=== PATIENT | female | born 1975 | race Caucasian/White ===

== ENCOUNTER 2017-08-18 14:30 | Outpatient (RCR) | payer OTHER, SELFPAY ==
--- NOTE | 2017-07-29 09:16 | HP.PTEVAL_ITS ---
Patient's Visit Information BRIANNA LEWIS is a 42 year old F referred to Physical Therapy by Arthur RAMÍREZ with a diagnosis of Cervical DDD. Date of Evaluation: 07/29/17 Physical Therapist: Arcenio Valerio DPT, OC - Visit Plan Frequency: 2x /Week Duration: 4-6 Weeks Plan: 2x/week for 3 -6 weeks for. progress of sea based forces on c/s ret to extension and mobs as needed. cervical and postural strength to HEP. TENS and STM to UT and subocc as needed with MH. - Subjective Subjective: Tripp for two months insidious onset. Worsening and more consistent. 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 Start in base of skull and move to B eyes. Waking her up at night. Constant. Avoids cleaning due to TRIPP. Basic ADLs done but made more difficult. Moist heat helps. Masssage helped for a day. 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 Golfer. X box,. Stress and anxious. carries in in shoulders. Neck feels stiff but not painful. - Pain TRIPP Pain Intensity (Out of 10): 7 Pain Intensity Range: 0, 9 Comment: massage made it 0 for a while. - Objective Start LB tightness and mild TRIPP. repeated protrusion W in scapula with tension, TRIPP worse. repeated retraction: OK abolish TRIPP,. Has forward head and loss of cervical lordosis, scapula slightly elevated at baseline. UE and scap ROM is good. c/s AROM ext 50, rot 70 and SB gives tightness R UT. Pain only with ext central neck more tightness. reflexes 2/3 bi and tri. strength UE 4/5 without myotomal problems or pain. Sensation In UE WNL to gross light touch. Palpable balls in B UT but no real tenderness in cervical or scapular mmuscles. - c/s compression, - Goals Goal 1:: Full c/s AROM without pain Goal Time Frame: 4-6 Weeks Goal 2:: Approp posture without VC. Goal Time Frame: 4-6 Weeks Goal 3:: Pain 1/10 at worst and 90% better overall. Goal Time Frame: 4-6 Weeks Goal 4:: Sleep without interruption from TRIPP Goal Time Frame: 4-6 Weeks - Rehabilitation Potential Physical Therapy Diagnosis: Cervical pain/TRIPP likely derangement in nature. Rehabilitation Potential: Fair - Anticipated Interventions Patient/Client Instruction: Educate patient on: Condition, Plan of Care For the Purpose of:: To decrease pain, To increase ROM Therapeutic Exercise to Include: Strength training, Passive ROM, Active ROM, Sea Exercises, Scapular Strength/Stabilization For the Purpose of:: To decrease pain, To increase ROM, To improve ability of physical actions for home/community/work/leisure Manual Therapy Techniques to Include: Mobilization For the Purpose of:: To increase ROM TENS: Yes Thermo therapy (hot pack): Yes For the Purpose of:: To decrease pain Thank you for the opportunity to evaluate your patient. For Medicare and Medicare HMO plans, please review the plan of care and approve it. It will need to be FAXED BACK to us at [phone] for Medicare purposes. Please let me know if there are questions or concerns regarding this plan of care. Physician Signature: Date:
--- NOTE | 2017-08-18 15:14 | HP.PTDCSUM ---
HP - PT D/C Summary It has been my pleasure to treat BRIANNA LEWIS under orders from DR.CRANNE Corine for the diagnosis of Cervical DDD for a total of 8 visit(s). Discharge Date: 08/18/17 Please see the following information for a summary of their discharge status. - Subjective Subjective: No TRIPP anymore. Exercises really helped . HEP: pulling on banned. Sleep is good. Has exercises on paper. - Pain TRIPP Pain Intensity (Out of 10): 0 - Overall Improvement % Improvement: 90 - Objective Objective/Function: Full active C/S arom without pain today. Full UE AROM and strength is 4/5 without pain. - Goals Goal 1:: Full c/s AROM without pain Goal Progress: Goal Met Goal 2:: Approp posture without VC. Goal Progress: Goal Met Goal 3:: Pain 1/10 at worst and 90% better overall. Goal Progress: Goal Met Goal 4:: Sleep without interruption from TRIPP Goal Progress: Goal Met - Plan Plan: D/C to HEP - D/C Information Discharge Comments: Pt did excellent with PT and will continue via HEP. Will contact doctor if pain returns If there are questions or concerns regarding this patient's physical therapy, please feel free to call me at [phone]. Thank you for the referral of this patient. Sincerely, Arcenio Valerio, DPT, OC
== END 2017-08-18 19:00 | disposition home or self-care (01) ==
LOC: PT 14:30
PROVIDERS: Family Provider Family Medicine; PCP Family Medicine; Visit Provider Family Medicine
DX: M50.30 Other cervical disc degeneration, unspecified cervical region (principal)
CPT/HCPCS: 97110; 97140; 97161; 97530

== ENCOUNTER → 2017-11-30 10:30 | Outpatient (CLI) | payer OTHER, SELFPAY ==
[2017-12-02 12:11] LABS: HPV Reflexed? NOT INDICATED
== END ==
PROVIDERS: Visit Provider Obstetrics & Gynecology
DX: Z12.4 Encounter for screening for malignant neoplasm of cervix (principal)
CPT/HCPCS: 88175; G0145

== ENCOUNTER → 2017-12-28 10:15 | Outpatient (CLI) | payer OTHER, SELFPAY ==
--- NOTE | 2017-12-28 10:17 | BI_ITS ---
MAMMOGRAPHY - BILATERAL SCREENING REASON FOR EXAM: Female, 42 years old. Routine annual screening examination. PERTINENT HISTORY: Aunt with breast cancer. TECHNIQUE: Digital bilateral breast tessa (3D mammographic acquisition) in the CC and MLO projections. 2-D mediolateral oblique (MLO) and craniocaudad (CC) views of both breasts were obtained. CAD: Full Field Digital Mammography with Computer Added Detection was performed. COMPARISON: Comparison is made with prior study dated October 29, 2016 and January 14, 2014. FINDINGS: Breast Composition: The breasts are heterogeneously dense, which may obscure small masses. There are no dominant masses or suspicious calcifications. Stable benign-appearing bilateral axillary lymph nodes. No other significant abnormalities are identified. There has been no significant change since the prior study. BI/SCREENING MAMM (CAD), BILAT IMPRESSION: Stable bilateral screening mammogram. Yearly follow-up mammogram recommended. (A) ASSESSMENT CATEGORY: BIRADS Category 2: Benign. A letter regarding these results will be sent to the patient by the facility within 30 days. Approximately 10% of breast cancers are not detected by mammography. A normal mammogram should not delay biopsy of a clinically suspicious abnormality. [id number] Electronically Signed: Marcus Jackson MD at 11:21 EDT Tel [phone], Service support ,
== END ==
PROVIDERS: Family Provider Family Medicine; PCP Family Medicine; Visit Provider Obstetrics & Gynecology
DX: Z12.31 Encounter for screening mammogram for malignant neoplasm of breast (principal)
CPT/HCPCS: 77063; 77067

== ENCOUNTER 2018-07-12 08:15 | Outpatient (RCR) | payer OTHER, SELFPAY ==
--- NOTE | 2017-08-03 13:18 | MASS.EVAL_ITS ---
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 She was referred to the [facility] facility for a massotherapy evaluation by Dr. Arthur William with the diagnosis of headaches. Blanche presents today with the symptoms of tension and pain in her neck, upper back, lower back, and hips. She reports having a history of chronic neck pain and muscle tension in her neck, shoulders and low back. She reports having five or more headaches per week but reports minimal limitations during her daily activities currently. OBJECTIVE: Upon observation Blanche has poor posture with her head forward and shoulders forward from the neutral position in sitting and standing. After examination and palpation I found Blanche to have very high muscle tension in her scalenes, trapezius, rhomboids, and sub occipitals with restrictions in cervical ROM. Her thoracic paraspinals were tender with muscle knots. Her hips and lumbar muscles were also very tight with tender points. The first treatment consisted of a one hour massage to her full body with myofascial release and compression techniques. ASSESSMENT: I feel that Blanche is a good candidate for massotherapy at this time. She had a favorable response to the first treatment with reduction in her muscle aches, pain and tension. She also had improvement in her cervical and lumbar range of motion with improved flexibility in her neck and back. PLAN: The plan of care was reviewed with the patient. The patient is to be seen on as needed basis for a total of ten sessions with the recommendation of once every four weeks for a one hour treatment.
--- NOTE | 2018-07-12 12:04 | MASS.DISCH ---
Massage Therapy Discharge Summary: Discharge Date: 07/12/2018 Blanche was seen for a massotherapy evaluation on 07/27/2017 with the diagnosis of neck pain. She was treated with ten sessions of massage therapy consisting of deep pressure soft tissue techniques, myofascial release and trigger point compression to her cervical, thoracic, lower back, upper extremities and hips. Blanche responded well to the therapy by reporting decreased tension and pain throughout her head, neck, shoulders, lower back and hips. Her goals for therapy were met throughout the treatment sessions. At this time this patient is being discharged from our care at [facility] facility.
== END 2018-07-12 19:00 | disposition home or self-care (01) ==
LOC: MASS 08:15
PROVIDERS: Family Provider Family Medicine; PCP Family Medicine; Visit Provider Family Medicine
DX: M50.30 Other cervical disc degeneration, unspecified cervical region (principal)
CPT/HCPCS: 97124

== ENCOUNTER → 2019-02-16 | Outpatient (CLI) | payer OTHER, SELFPAY ==
[2018-12-01 07:06] VITALS: BMI 29.2
--- NOTE | 2019-02-16 14:59 | BI_ITS ---
MAMMOGRAPHY - BILATERAL SCREENING REASON FOR EXAM: Female, 43 years old. Routine annual screening examination. PERTINENT HISTORY: Aunt with breast cancer. TECHNIQUE: Digital bilateral breast dona (3D mammographic acquisition) in the CC and MLO projections. 2-D mediolateral oblique (MLO) and craniocaudad (CC) views of both breasts were obtained. CAD: Full Field Digital Mammography with Computer Added Detection was performed. COMPARISON: Comparison is made with prior examination dated December 28, 2017 and October 29, 2016. FINDINGS: Breast Composition: The breasts are heterogeneously dense, which may obscure small masses. There are no dominant masses or suspicious calcifications. Stable small benign-appearing bilateral axillary lymph nodes. No other significant abnormalities are identified. There has been no significant change since the prior study. BI/SCREEN MAMM (CAD) W/DONA BILAT IMPRESSION: Stable bilateral screening mammogram. Yearly follow-up mammogram recommended. (A) ASSESSMENT CATEGORY: BIRADS Category 2: Benign. A letter regarding these results will be sent to the patient by the facility within 30 days. Approximately 10% of breast cancers are not detected by mammography. A normal mammogram should not delay biopsy of a clinically suspicious abnormality. [id number] Electronically Signed: Marcus Jackson, at 10:00 EDT , Service support ,
== END | disposition home or self-care (01) ==
LOC: OPBI 14:58
PROVIDERS: Family Provider Family Medicine; PCP Family Medicine; Referring Provider Obstetrics & Gynecology; Visit Provider Obstetrics & Gynecology
DX: Z12.31 Encounter for screening mammogram for malignant neoplasm of breast (principal)
CPT/HCPCS: 77063; 77067

== ENCOUNTER 2019-05-30 08:15 | Outpatient (RCR) | payer OTHER, SELFPAY ==
[2018-07-30 11:36] VITALS: BMI 29.2
[2018-12-01 07:06] VITALS: BMI 29.2
--- NOTE | 2019-01-26 11:50 | MASS.EVAL ---
Massage Therapy Evaluation: Date Of Initial Evaluation: 01/10/2019 Referring Physician: Dr. 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 She was seen for a massotherapy evaluation with a diagnosis of neck and back pn. She presents today with pain in her neck and back. She further explains that at times she does get numbness and tingling into her arms and hands. On a pain scale of 1-10 she states her pain in a 5 today. She describes it more as stiffness than pain. Her medications include Lexapro and Hydroxacine. She states that her health is very good with no limits in daily activities. Her goals of treatment are to reduce headaches, and get her muscles to relax. OBJECTIVE: Upon examination and palpation I found she had point tenderness throughout her suboccipitals. The muscles in her head, neck, and shoulders were very tight. Her scalp was rigid. Her cervicals were tight, scalenes were tight right side greater than left. Her upper traps and low traps were tight with knots throughout. Her paraspinals are also rigid and ropey. Blanche's first treatment consisted of MFR, muscle stripping, PNMT to her cervicals as well as heat pack to loosen muscles. ASSESSMENT: Using various techniques I was able to achieve moderate releases overall. The patient tolerated deep pressure well and relaxed easily PLAN: I plan to see this patient on an as-needed basis for a total of 10 visits in the year 2019. Danielle Escalona LMT
--- NOTE | 2019-07-04 10:51 | MASS.DISCH ---
Massage Therapy Discharge Summary: Initial Evaluation Date: 01/10/2019 Diagnosis: Neck and back pain No. of Visits: 7 10 Date of last visit: 05/30/2019 This patient is being discharged from our care at the [facility]. Thank you, Clarisa Del Valle LMT
== END 2019-05-30 19:00 | disposition home or self-care (01) ==
LOC: MASS 08:15
PROVIDERS: Family Provider Family Medicine; PCP Family Medicine; Visit Provider Family Medicine
DX: M54.2 Cervicalgia (principal); M54.9 Dorsalgia, unspecified
CPT/HCPCS: 97124

== ENCOUNTER → 2020-03-19 16:18 | Outpatient (CLI) | payer OTHER, SELFPAY ==
[2020-03-19 09:45] VITALS: BMI 29.2
[2020-03-24 12:25] LABS: HPV APTIMA, High Risk Negative (Negative)
== END ==
PROVIDERS: PCP Family Medicine; Referring Provider Nurse Practitioner Women's Health; Visit Provider Nurse Practitioner Women's Health
DX: Z12.4 Encounter for screening for malignant neoplasm of cervix (principal)
CPT/HCPCS: 87624; 88175; G0145

== ENCOUNTER 2020-04-30 08:15 | Outpatient (RCR) | payer OTHER, SELFPAY ==
[2018-12-01 07:06] VITALS: BMI 29.2
--- NOTE | 2020-02-18 16:58 | MASS.EVAL ---
Massage Therapy Evaluation: INITIAL EVALUATION: DATE:02/11/20 PT NAME: BRIANNA LUNA : 1975 V#: [id number] REF PHYS: SUBJECTIVE: BRIANNA IS A 44 YEAR OLD FEMALE WHOSE CURRENT OCCUPATION IS A [employer] AND WAS REFERRED TO [facility] FOR A MASSOTHERAPY EVALUATION BY DR. FALLON WITH A DIAGNOSIS OF NECK AND SHOULDER PAIN. SHE PRESENTS TODAY WITH SYMPTOMS OF HEADACHE, TENSION IN NECK AND SHOULDERS, AND OCCASIONALLY WAKING UP WITH NUMBNESS IN HER ARMS AND FINGERS. SHE RATES HER OVERALL HEALTH IN GOOD CONDITION WITH NO LIMITATIONS IN HER DAILY ACITVITY. THE PATIENT IS CURRENTLY TAKING LEXAPRO, LORAZAPAM, PRILOSEC, AND ADVIL. OBJECTIVE: THE FIRST TREATMENT CONSISTED OF AN UPPER BODY MASSAGE. I FOCUSED ON SUBOCCIPITALS, PARASPINALS, LEVATOR, UPPER TRAPS, SCALENES, PECTORALS, AND RHOMBOIDS. DEEP TISSUE, NECK STRETCHES, AND TRIGGER POINT THERAPY WERE PERFOMED. ASSESSMENT: THE PATIENTS MUSCLE TENSION WAS VERY HIGH, WITH NO NATURAL MOVEMENT. THE RIGHT AND LEFT SIDES SEEMED BOTH EQUAL WITH TENSION AND HARDNESS. I FELT THE PATIENTS STRESS LEVEL DECREASED DURING THE MASSAGE AND SHE LEFT WITH NO HEADACHE. I FEEL THAT BRIANNA IS A GREAT CANDIDATE FOR MASSOTHERAPY AT THIS TIME. PLAN: THE AN OF CARE WAS REVIEWED WITH THE PATIENT. THE PATIENT IS TO BE SEEN ON A REGULAR BASIS FOR 10 SESSIONS FOR ONE HOUR OF MASSOTHERAPY.
--- NOTE | 2020-07-08 19:12 | MASS.DISCH ---
Massage Therapy Discharge Summary: Discharge Date: 07/08/2020 Blanche was seen for a massotherapy evaluation on 02/11/2020 with the diagnosis of neck and shoulder pain. She was treated with three sessions of massage therapy consisting of deep pressure soft tissue techniques, myofascial release and trigger point compression to her cervical, thoracic, lower back, lower extremities and hips. Blanche responded well to the therapy by reporting decreased tension and pain throughout her neck, shoulders, lower back and hips. Her goals for therapy were met throughout the treatment sessions. At this time this patient is being discharged from our care at [facility] facility.
== END 2020-04-30 19:00 | disposition home or self-care (01) ==
LOC: MASS 08:15
PROVIDERS: Family Provider Family Medicine; PCP Family Medicine; Referring Provider Family Medicine; Visit Provider Family Medicine
DX: M54.2 Cervicalgia (principal); M25.511 Pain in right shoulder; M25.512 Pain in left shoulder
CPT/HCPCS: 97124

== ENCOUNTER → 2020-05-27 13:56 | Outpatient (CLI) | payer OTHER, SELFPAY ==
[2020-03-19 09:45] VITALS: BMI 29.2
--- NOTE | 2020-05-27 14:02 | BI_ITS ---
MAMMOGRAPHY - BILATERAL SCREENING REASON FOR EXAM: Female, 44 years old. Routine annual screening examination. PERTINENT HISTORY: Aunt with breast cancer. TECHNIQUE: Digital bilateral breast dona (3D mammographic acquisition) in the CC and MLO projections. 2-D mediolateral oblique (MLO) and craniocaudad (CC) views of both breasts were obtained. CAD: Full Field Digital Mammography with Computer Added Detection was performed. COMPARISON: Comparison is made with prior study 02/16/2019 and 12/28/2017. FINDINGS: Breast Composition: The breasts are heterogeneously dense, which may obscure small masses. There are no dominant masses or suspicious calcifications. Stable benign appearing bilateral axillary lymph nodes. No other significant abnormalities are identified. There has been no significant change since the prior study. BI/SCREEN MAMM (CAD) W/DONA BILAT IMPRESSION: Stable bilateral screening mammogram. Yearly follow-up mammogram recommended. (A) ASSESSMENT CATEGORY: BIRADS Category 2: Benign. A letter regarding these results will be sent to the patient by the facility within 30 days. Approximately 10% of breast cancers are not detected by mammography. A normal mammogram should not delay biopsy of a clinically suspicious abnormality. [id number] Electronically Signed: Marcus Jackson, at 15:09 EST , Service support ,
== END ==
PROVIDERS: PCP Family Medicine; Referring Provider Nurse Practitioner Women's Health; Visit Provider Nurse Practitioner Women's Health
DX: Z12.31 Encounter for screening mammogram for malignant neoplasm of breast (principal)
CPT/HCPCS: 77063; 77067

== ENCOUNTER → 2020-06-14 15:03 | Outpatient (REF) | payer OTHER, SELFPAY ==
[2020-03-19 09:45] VITALS: BMI 29.2
== END ==
LOC: EMPH 15:03
PROVIDERS: PCP Family Medicine; Referring Provider Internal Medicine Infectious Disease; Visit Provider Internal Medicine Infectious Disease
DX: Z11.59 Encounter for screening for other viral diseases (principal)
CPT/HCPCS: 87633; 87635; U0002

== ENCOUNTER → 2020-08-29 15:31 | Outpatient (CLI) | payer OTHER, SELFPAY ==
--- NOTE | 2020-08-29 15:35 | RAD_ITS ---
STUDY: X-RAY - CERVICAL SPINE REASON FOR EXAM: Female, 45 years old. numbness, some pain and aching in lateral right hand and forearm TECHNIQUE: 5 view(s) of the cervical spine were obtained. COMPARISON: Prior cervical spine films of 07/20/2017 FINDINGS: Normal anterior atlantoaxial articulation. Normal odontoid process. Straightening of the cervical spine. Slight dextrocurvature. Negative for fracture, osteolytic or blastic bone changes. Disc narrowing, spondylitic endplate changes and uncovertebral arthrosis at C5-6 minimal disc narrowing at other cervical levels and foraminal narrowing at C5-6, right greater than left. Normal visualized intervertebral neuroforamina. The soft tissue structures are unremarkable. RAD/Cerv Spine 4 or 5 Views IMPRESSION: Continued straightening of the cervical spine and a slight dextrocurvature. Degenerative disc narrowing and uncovertebral arthrosis at C5-6 with severe foraminal narrowing on the right and moderate foraminal narrowing on the left. No substantial changes from prior exam. Electronically Signed: Diandra Alvarez MD at 16:03 EST , Service support ,
== END ==
PROVIDERS: PCP Family Medicine; Referring Provider Family Medicine; Visit Provider Family Medicine
DX: G56.21 Lesion of ulnar nerve, right upper limb (principal)
CPT/HCPCS: 72050

== ENCOUNTER 2020-10-15 09:25 | Outpatient (RCR) | payer OTHER, SELFPAY ==
[2020-03-19 09:45] VITALS: BMI 29.2
--- NOTE | 2020-10-16 13:02 | MASS.EVAL_ITS ---
Massage Therapy Evaluation: Initial Evaluation Date: 10/15/2020 SUBJECTIVE: Blanche is a 45 year old female who was referred to the [facility] facility for a massotherapy evaluation by Dr. Miranda with the diagnosis of dorsalgia. She presents today with the symptoms of pain, stiffness and tension in the neck, head, mid back, low back ,and hips. Blanche reports having a past medical history of chronic neck and back pain and complains of five or more headaches a week and radiating pain in her neck and arms. She reports having minimal improvement with exercise and stretching over the last few months. OBJECTIVE: Upon observation Blanche has some posture issues with her head and shoulders forward from the neutral position in sitting and standing. After examination and palpation, I found Blanche to have high muscle tension with tenderness and myofascial restrictions in her sub occipitals, levator scapulae, trapezius, rhomboids, scalenes, and thoracic paraspinals. Her QL?s, lumbar paraspinals, piriformis, ITB?s, glute medius and minimus all were very tight with fascial restrictions, tender points and trigger points. The first treatment consisted of a one hour massage to her upper body with myofascial release, muscle stripping, trigger point compression techniques, and cervical manual traction. ASSESSMENT: I feel that Blanche is a good candidate for massotherapy at this time. She had a favorable response to the first treatment with reduction in her muscle aches, pain and tension. She also had improvement in her cervical flexibility and low back flexibility. PLAN: The plan of care was reviewed with the patient. The patient is to be seen on an as needed basis for a total of ten sessions with the recommendation of once every month for a one hour treatment.
--- NOTE | 2021-07-02 19:05 | MASS.DISCH ---
Massage Therapy Discharge Summary: Discharge Date: 07/02/2021 Blanche was seen for a massotherapy evaluation on 10/15/2020 with the diagnosis of dorsalgia. She was treated with one session of massage therapy consisting of deep pressure soft tissue techniques, myofascial release and trigger point compression to his cervical, thoracic, lower back and hips. Blanche responded well to the therapy by reporting decreased tension and pain throughout her neck, shoulders, lower back, lower extremities and hips. Her goals for therapy were met throughout the treatment sessions. At this time this patient is being discharged from our care at [facility] facility.
== END 2020-10-15 19:00 | disposition home or self-care (01) ==
LOC: MASS 09:25
PROVIDERS: PCP Family Medicine; Referring Provider Family Medicine; Visit Provider Family Medicine
DX: M54.9 Dorsalgia, unspecified (principal)
CPT/HCPCS: 97124

== ENCOUNTER 2021-07-08 05:24 | Day surgery (SDC) | payer OTHER, SELFPAY ==
[2021-07-08] VITALS (7 sets, daily range): BP systolic 91–107; BP diastolic 53–75; PULSE 64–76; RESP 16; TEMP 36–37.1; O2SAT 97–100; BMI 30.7
--- NOTE | 2021-07-08 05:56 | HP.PCM_ITS ---
History and Physical Date of Admission: 07/08/21 Intake Visit Reasons: HIATAL HERNIA Chief Complaint: hiatal hernia/ dysphagia Topography Technician Required: No Is patient in pain?: No Allergies No Known Allergies Allergy (Verified 06/10/21 13:52) Medications lorazepam 0.5 mg tablet 0.5 mg PO DAILY PRN 03/19/20 [History Confirmed 06/10/21] cetirizine 10 mg tablet 10 mg PO DAILY PRN 06/10/21 [History Confirmed 06/10/21] escitalopram oxalate 5 mg tablet 15 mg PO DAILY tab 06/10/21 [History Confirmed 06/10/21] omeprazole 20 mg capsule,delayed release 20 mg PO DAILY PRN 06/10/21 [History Confirmed 06/10/21] valacyclovir 1 gram tablet 1,000 mg PO DAILY PRN 06/10/21 [History Confirmed 06/10/21] Is last menstrual period known: No Post menopausal: No Patient : No [facility] Medical History (Updated 06/10/21 @ 14:[address] Des Leos MD) Anxiety and depression Bilateral headaches Dysphagia Environmental allergies Hiatal hernia High cholesterol Surgical History (Updated 06/10/21 @ 13:51 by Arlette Garcia) History of esophagogastroduodenoscopy (EGD) (~2017) History of tubal ligation S/P sinus surgery uterine ablation Family History Other Breast cancer CVA (cerebral vascular accident) Cancer Heart disease Social History household members: spouse and children number of children: 2 current occupational status: employed current occupation: [employer] history of recent travel: No sexually active: Yes Smoking Status: Former smoker alcohol intake: current alcohol intake frequency: holidays/special occasions only substance use type: does not use what type of physical activity do you participate in: walking and weight tra ining frequency: 3-4 times per week seatbelt use: always do you feel safe at home: Yes additional social history: - Panfilo HPI HPI HPI: BRIANNA LUNA, is a 45 F who presents to the office today for surgical consultation regarding gastroesophageal reflux disease and known hiatal hernia. The patient is referred by Dr. Lolis Miranda and written copy my surgical consult and recommendations will return to her. She has had worsening dysphagia with food getting stuck causing her to have to regurgitate. She notes that 5 years prior she had an upper endoscopy and was told she had a small hiatal hernia. She utilizes omeprazole on a as needed basis. A previous air-contrast upper GI series was obtained on October 15, 2016 and at that point was normal At that point she was not having as much trouble with getting food to pass. This is now progressed. It is of interest that 4 years ago she stopped cigarette smoking. She gained 40 pounds in weight. Not sure whether this would have added concern. She only takes omeprazole infrequently. She does drink beer at least a couple times per week. The patient particularly notes that meats and breads cause her discomfort. Pork chops are particularly offensive ROS General General: Yes weight change and fatigue; No appetite, colon cancer, breast cancer or weakness HEENT HEENT: Yes difficulty swallowing; No eye injury, eye surgery, swollen glands or hoarseness Endo Endocrine: No thyroid disease, diabetes mellitus, thyroid cancer, Hair loss, heat intolerance or cold intolerance Musc Musculoskeletal: Yes back problems; No arthritis, rheumatoid arthritis, gout or joint pain Cardio Cardiovascular: No murmur, pacemaker, heart disease, atrial fibrillation, high blood pressure, heart attack, heart stent, palpitations, shortness of breat with exertion or chest pain Psych Psychiatric: Yes depression and anxiety; No hearing voices Resp Respiratory: No shortness of breath, No sleep apnea, No cough, No COPD, No asthma, No emphysema and No wheezing Gastro Gastrointestinal: No abdominal pain, Yes nausea or vomiting, No diarrhea, No constipation, No blood in stool, No acid reflux, No hemorrhoids, No ulcers, No gallbladder problem and No black,tarry stools Arnaud Hematologic: No blood thinners, No blood disorders, No bleeding, No anemia and No blood clots Neuro Neurologic: No weakness Exam Const General: cooperative, comfortable and no acute distress Nutritional Appearance: overweight Orientation: alert, awake and oriented x3 HENMT Head: normal to inspection Eyes General: appearance normal, both eyes and all related structures Neck Neck: normal visual inspection Resp Effort & Inspection: normal respiratory effort Auscultation: clear to auscultation bilaterally Cardio Rate: regular rate Rhythm: regular rhythm GI Palpation: soft and no hepatosplenomegaly Auscultation: normal bowel sounds Musc Cervical Spine: normal cervical lordosis Neuro General: patient alert and patient awake Extrem General: no calf tenderness Psych Appearance: grossly normal Judgment: judgment good Assessment and Plan Assessment and Plan (1) Dysphagia: Status: Acute Qualifiers: Dysphagia type: esophageal phase Qualified Code(s): R13.19 - Other dysphagia Plan - Dr. Des Leos MD: Esophageal dysphagia with intermittent obstruction requiring regurgitation for relief. Previous history suggest previous hiatal hernia. There has been some moderate weight gain since her previous evaluations in 2017 secondary to the cessation of tobacco. Patient may very well have reflux with a Schatzki ring. I have interest as to whether the patient could have chronic reflux with progressive hiatal hernia possible Schatzki ring. Other etiologies certainly would include eosinophilic esophagitis. Patient could have esophageal motility problems as well. I recommended the patient a esophagogastroduodenoscopy with possible biopsy and possible dilatation if indicated. She is aware of the technique, benefit, risk, alternatives. She has had an opportunity to ask and have questions answered. I very much appreciate the kind opportunity of assisting with her surgical care. Copy: Dr. Lolis Leos M.D., F.A.C.S. I have re-examined the patient. There are no clinical changes since date of exam. Des Leos M.D., F.A.C.S.
[2021-07-08] MEDS: Lactated Ringers 1,000 ML 15 ML IV (06:04)
--- NOTE | 2021-07-08 06:30 | IMM_PTH ---
PATIENT: BRIANNA LUNA LOC: EN U#:[id number] AGE/SX: 46/F ROOM: RE07/08/[address]: Dr. Des Leos MD : 1975 BED: DIS: 07/08/2021 SPEC #: [id number] RECD: 07/08/21 14:52 STATUS: RENÉE REJose #: [id number] LUZ: 07/08/21 06:[address]: eDs Leos DEPT: IMMUNOHISTOCHEMISTRY RECD BY: Jasmine Boogie ENTERED: 07/08/21 14:52 SP TYPE: IMMUNO OTHR DR: Dr. Lolis Miranda MD Tissues: A - Stomach, NOS Procedures: H Pylori (initial) PHYSICIAN & INSTITUTION [place] [id number] SPECIMEN INFORMATION: Tissue Source: A ? Antral biopsy Clinical Info: Dysphagia Specimen Number: [id number] CPT code: 10774 METHODOLOGY: Deparaffinized sections of prefer/formalin-fixed tissue or PAP/DQ stained slides are incubated with monoclonal/polyclonal antibodies/oligonucleotide probes. Localization is made via biotin free immunoperoxidase method. Appropriate controls are performed and reacted as expected. Results on target cell population are indicated in the following table: RESULTS: ANTIBODY / CLONE RESULT Block A H Pylori (polyclonal) negative These tests were developed and their performance characteristics determined by [facility]. They may not have been cleared or approved by the U.S. Food and Drug Administration. The FDA has determined that such clearance or approval is not necessary. INTERPRETATION: A. Antral biopsy: Negative for Helicobacter pylori organisms. AM:michele 07/09/2021
--- NOTE | 2021-07-08 06:30 | EGD_PTH ---
PATIENT: BRIANNA LUNA LOC: EN U#:[id number] AGE/SX: 46/F ROOM: RE07/08/[address]: Dr. Des Leos MD : 1975 BED: DIS: 07/08/2021 SPEC #: [id number] RECD: 07/08/21 11:24 STATUS: RENÉE VALARIE #: [id number] LUZ: 07/08/21 06:[address]: Des Leos DEPT: SURGICAL PATHOLOGY RECD BY: Loreta Carlisle ENTERED: 07/08/21 13:20 SP TYPE: EGD BIOPSY OT DR: Dr. Lolis Miranda MD Tissues: A - Gastric mucous membrane B - Stomach, NOS C - Esophagus, NOS Procedures: Special Stain Group II Surgery Specimen Level IV Alcian Blue/PAS (control) HEADER OPERATION: [place] [place] with dilatation PRE-OP DIAGNOSIS: Dysphagia TISSUE SUBMITTED: A ? Antral biopsy for H. pylori and path, B ? GE junction biopsy, C ? Mid esophagus biopsy MICROSCOPIC DIAGNOSIS A. Gastric antrum, biopsy: Chronic gastritis. See comment. B. Gastroesophageal junction, biopsy: Chronic inflammation. Focal changes of reflux. No evidence of goblet cell metaplasia. See comment. C. Mid esophagus, biopsy: No pathologic change. AM:michele 07/09/2021 COMMENT A. The results of immunohistochemistry for Helicobacter pylori will be reported separately ([id number]). B. Alcian blue/PAS stain with matched control supports the above diagnosis. MICROSCOPIC DESCRIPTION Slides are reviewed. GROSS DESCRIPTION A - Received in fixative is one container labeled with the patient's name and designated antral biopsy. The specimen consists of two irregular fragments of light montelongo soft tissue that in aggregate measure 0.8 x 0.3 x 0.1 cm. The specimen is totally submitted in one cassette. B - Received in fixative is one container labeled with the patient's name and designated GE junction biopsy. The specimen consists of one irregular fragment of light montelongo soft tissue that measures 0.5 x 0.5 x 0.1 cm. The specimen is totally submitted in one cassette. C - Received in fixative is one container labeled with the patient's name and designated mid esophagus biopsy. The specimen consists of two irregular fragments of light montelongo soft tissue that in aggregate measure 0.6 x 0.5 x 01 cm. The specimen is totally submitted in one cassette. / AM:michele 07/08/21 TC:3 CPT: 79308 x3, 35232
--- NOTE | 2021-07-08 06:53 | OP.CCLET_ITS ---
07/08/2021 Lolis Miranda [place] [id number] [address] Re : Upper GI endoscopy procedure for Blanche Medel Dear Dr. Miranda This procedure was performed on Thursday, July 08, 2021. My impressions and recommendations are as follows: Impressions : - LA Grade A reflux esophagitis. Biopsied. Mid esophagus normal, biopsied - Medium-sized hiatal hernia. - Mild Schatzki ring. Dilated. - Erythematous mucosa in the antrum. Biopsied. - Normal examined duodenum. Recommendations : - Discharge patient to home. - Resume previous diet. - Continue present medications. - Return to my office in 1 week. My findings are described in the full procedure note, which is enclosed. If I can be of further assistance, please feel free to contact me at Doctor phone number(s): Work: . Sincerely, Des eLos MD 07/08/2021 6:53:31 AM This report has been signed electronically.
--- NOTE | 2021-07-08 06:53 | OP.EGD_ITS ---
Patient Name: Blanche Medel Procedure Date: 07/08/2021 6:15 AM Date of : 1975 Age: 46 Procedure: Upper GI endoscopy Indications: Dysphagia Providers: Des Leos MD Referring MD: Lolis Miranda Medicines: See the Anesthesia note for documentation of the administered medications Complications: No immediate complications. Procedure: Pre-Anesthesia Assessment: - Prior to the procedure, a History and Physical was performed, and patient medications and allergies were reviewed. The patient's tolerance of previous anesthesia was also reviewed. The risks and benefits of the procedure and the sedation options and risks were discussed with the patient. All questions were answered, and informed consent was obtained. Prior Anticoagulants: The patient has taken no previous anticoagulant or antiplatelet agents. ASA Grade Assessment: II - A patient with mild systemic disease. After reviewing the risks and benefits, the patient was deemed in satisfactory condition to undergo the procedure. After obtaining informed consent, the endoscope was passed under direct vision. Throughout the procedure, the patient's blood pressure, pulse, and oxygen saturations were monitored continuously. The Endoscope was introduced through the mouth, and advanced to the second part of duodenum. The upper GI endoscopy was accomplished without difficulty. The patient tolerated the procedure well. Scope In: 6:35:30 AM Scope Out: 6:46:32 AM Total Procedure Duration Time 0 hours 11 minutes 2 seconds Findings: LA Grade A (one or more mucosal breaks less than 5 mm, not extending between tops of 2 mucosal folds) esophagitis with no bleeding was found 37 cm from the incisors. Biopsies were taken with a cold forceps for histology. A medium-sized hiatal hernia was present. A mild Schatzki ring was found at the gastroesophageal junction. A TTS dilator was passed through the scope. Dilation with an 18-19-20 mm balloon dilator was performed to 20 mm. The dilation site was examined following endoscope reinsertion and showed moderate improvement in luminal narrowing. Estimated blood loss was minimal. Diffuse mildly erythematous mucosa without bleeding was found in the gastric antrum. Biopsies were taken with a cold forceps for histology. The examined duodenum was normal. The middle third of the esophagus was normal. Biopsies were taken with a cold forceps for histology. Impression: - LA Grade A reflux esophagitis. Biopsied. Mid esophagus normal, biopsied - Medium-sized hiatal hernia. - Mild Schatzki ring. Dilated. - Erythematous mucosa in the antrum. Biopsied. - Normal examined duodenum. Recommendation: - Discharge patient to home. - Resume previous diet. - Continue present medications. - Return to my office in 1 week. Procedure Code(s): --- Professional --- 79536, Esophagogastroduodenoscopy, flexible, transoral; with transendoscopic balloon dilation of esophagus (less than 30 mm diameter) 34754, 59, Esophagogastroduodenoscopy, flexible, transoral; with biopsy, single or multiple Diagnosis Code(s): --- Professional --- K21.0, Gastro-esophageal reflux disease with esophagitis K44.9, Diaphragmatic hernia without obstruction or gangrene K22.2, Esophageal obstruction K31.89, Other diseases of stomach and duodenum R13.10, Dysphagia, unspecified CPT copyright 2017 [employer] [place] [employer]. All rights reserved. The codes documented in this report are preliminary and upon senior automation engineer review may be revised to meet current compliance requirements. Des Leos MD 07/08/2021 6:53:31 AM This report has been signed electronically. Number of Addenda: 0 Note Initiated On: 07/08/2021 6:15 AM
== END 2021-07-08 07:32 ==
LOC: EN 05:25 → AC 05:25
PROVIDERS: PCP Family Medicine; Referring Provider Family Medicine; Visit Provider Surgery
PROC: 0DJ08ZZ Inspection of Upper Intestinal Tract, Via Natural or Artificial Opening Endoscopic (ICD-10-PCS; CPT 43235; principal; 2021-07-08 06:25)
DX: K21.00 Gastro-esophageal reflux disease with esophagitis, without bleeding (principal); K44.9 Diaphragmatic hernia without obstruction or gangrene; K29.50 Unspecified chronic gastritis without bleeding; K22.2 Esophageal obstruction; K31.89 Other diseases of stomach and duodenum; F32.A Depression, unspecified; F41.9 Anxiety disorder, unspecified; Z87.891 Personal history of nicotine dependence; Z79.899 Other long term (current) drug therapy
CPT/HCPCS: 43239; 43249; 87426; 88305; 88313; 88342; C9803; J7120; J2405

== ENCOUNTER → 2021-08-13 09:22 | Day surgery (SDC) | payer OTHER, SELFPAY ==
[2021-08-13 09:35] VITALS: BP 118/82; PULSE 83; RESP 16; TEMP 37; O2SAT 94
== END ==
PROVIDERS: PCP Family Medicine; Referring Provider Family Medicine; Visit Provider Surgery
PROC: F00ZJWZ Instrumental Swallowing and Oral Function Assessment using Swallowing Equipment (ICD-10-PCS; CPT 43235; principal; 2021-08-13 09:25)
DX: R13.10 Dysphagia, unspecified (principal)
CPT/HCPCS: 91013

== ENCOUNTER 2021-08-26 13:28 | Outpatient (CLI) | payer OTHER, SELFPAY ==
--- NOTE | 2021-08-26 13:29 | BI_ITS ---
MAMMOGRAPHY - BILATERAL SCREENING REASON FOR EXAM: Female, 46 years old. Routine annual screening examination. PERTINENT HISTORY: Aunt with breast cancer. TECHNIQUE: Digital bilateral breast dona (3D mammographic acquisition) in the CC and MLO projections. 2-D mediolateral oblique (MLO) and craniocaudad (CC) views of both breasts were obtained. CAD: Full Field Digital Mammography with Computer Added Detection was performed. COMPARISON: Comparison is made with prior study dated 05/27/2020 and 02/16/2019. FINDINGS: Breast Composition: The breasts are heterogeneously dense, which may obscure small masses. There are no dominant masses or suspicious calcifications. Stable small benign appearing bilateral axillary. No other significant abnormalities are identified. There has been no significant change since the prior study. BI/SCRN MAMM (CAD)W/DONA BILAT IMPRESSION: Stable bilateral screening mammogram. Yearly follow-up mammogram recommended. (A) ASSESSMENT CATEGORY: BIRADS Category 2: Benign. A letter regarding these results will be sent to the patient by the facility within 30 days. Approximately 10% of breast cancers are not detected by mammography. A normal mammogram should not delay biopsy of a clinically suspicious abnormality. [id number] Electronically Signed: Marcus Jackson MD at 14:15 EST ,
== END 2021-08-26 23:59 | disposition home or self-care (01) ==
LOC: OPBI 13:29
PROVIDERS: PCP Family Medicine; Referring Provider Nurse Practitioner Women's Health; Visit Provider Nurse Practitioner Women's Health
DX: Z12.31 Encounter for screening mammogram for malignant neoplasm of breast (principal)
CPT/HCPCS: 77063; 77067

== ENCOUNTER 2022-02-08 06:04 | Day surgery (SDC) | payer OTHER, SELFPAY ==
[2022-02-08] VITALS (9 sets, daily range): BP systolic 110–127; BP diastolic 62–78; PULSE 73–87; RESP 16; TEMP 36.4–37.8; O2SAT 90–98; BMI 29.0
[2022-02-08] MEDS: Lactated Ringers 1,000 ML 15 ML IV ×2 (06:43→11:54)
--- NOTE | 2022-02-08 06:59 | HP.PCM_ITS ---
History and Physical Date of Admission: 02/08/22 Chief Complaint: update H&P for antoniowillam 02/08 Insolvency Consultant Required: No Is patient in pain?: No Allergies No Known Allergies Allergy (Verified 01/11/22 13:00) Medications lorazepam 0.5 mg tablet 0.5 mg PO DAILY PRN Anxiety 03/19/20 [History Confirmed 01/11/22] cetirizine 10 mg tablet (24Hour Allergy) 10 mg PO DAILY PRN ALLERGIES 06/10/21 [History Confirmed 01/11/22] escitalopram oxalate 5 mg tablet (Lexapro) 10 mg PO DAILY 06/10/21 [History Confirmed 01/11/22] omeprazole 20 mg capsule,delayed release 20 mg PO DAILY PRN GERD 06/10/21 [History Confirmed 01/11/22] valacyclovir 1 gram tablet (Valtrex) 1,000 mg PO DAILY PRN Cold Sores 06/10/21 [History Confirmed 01/11/22] Is last menstrual period known: No Post menopausal: No Patient : No [facility] Medical History? Alcohol use Anemia Anxiety Anxiety and depression Back pain Bilateral headaches Depression Difficulty swallowing Dysphagia Environmental allergies Former smoker Hiatal hernia High cholesterol History of hiatal hernia History of irregular heartbeat Non-smoker Restless legs Wears glasses Surgical History? History of esophagogastroduodenoscopy (EGD) (~2017) History of tubal ligation S/P sinus surgery uterine ablation Family History? Other Breast cancer CVA (cerebral vascular accident) Cancer Heart disease Social History? household members:? spouse and children number of children:? 2 current occupational status:? employed current occupation:? [employer] history of recent travel:? No sexually active:? Yes Smoking Status:? Former smoker alcohol intake:? current alcohol intake frequency: holidays/special occasions only substance use type:? does not use what type of physical activity do you participate in:? walking and weight training frequency:? 3-4 times per week seatbelt use:? always do you feel safe at home:? Yes additional social history:? - Panfilo HPI HPI HPI: BRIANNA LUNA, is a 46 F who presents to the office today for update history and physical. Patient denies any recent hospitalizations or illnesses. Patient denies complications or side effects from anesthesia. Patient denies current chest pain or shortness of breath. She denies past history of myocardial infarction, stroke or pulmonary embolism. She has not been diagnosed with COVID within the last 3 months. She has been vaccinated for COVID. She notes she has not had any food getting stuck since her last EGD with dilatation. She has noted increased GERD symptoms requiring more of a regular daily intake of omeprazole. Patient's past history per Dr. Leos: BRIANNA LUNA, is a 45 F who presents to the office today for surgical consultation regarding gastroesophageal reflux disease and known hiatal hernia.? The patient is referred by Dr. Lolis Miranda and written copy my surgical consult and recommendations will return to her.? She has had worsening dysphagia with food getting stuck causing her to have to regurgitate.? She notes that 5 years prior she had an upper endoscopy and was told she had a small hiatal hernia.? She utilizes omeprazole on a as needed basis.? A previous air-contrast upper GI series was obtained on October 15, 2016 and at that point was normal At that point she was not having as much trouble with getting food to pass.? This is now progressed.? It is of interest that 4 years ago she stopped cigarette smoking.? She gained 40 pounds in weight.? Not sure whether this would have added concern.? She only takes omeprazole infrequently. She does drink beer at least a couple times per week. The patient particularly notes that meats and breads cause her discomfort.? Pork chops are particularly offensive On July 08, 2021 I performed a esophagogastroduodenoscopy with hydrostatic dilatation to 20 mm.? Reflux esophagitis with Schatzki ring was identified 37 cm from the incisors.? Medium size hiatal hernia was identified.? Pathology obtained at that time demonstrated chronic gastritis H. pylori negative.? Chronic inflammation at the GE junction with focal changes of reflux.? No evidence of Delarosa's.? Mid esophageal biopsies were not remarkable. She was to continue her routine medications and encouraged to take her omeprazole on a routine daily basis rather than as needed. The patient is pleased with the upper endoscopy that she is completed.? She states that she has not had any food gets stuck since the dilatation performed as noted above.? She is not particularly happy about being on chronic medications if possible. ?? On August 13, 2021 the patient had esophageal manometry.? This suggests that the distal contractile integral is elevated at 9687.? With the distal contractile INT being 14,785.? Number of hypercontractile swallows of 5.? Interpretation was that 10 swallows were analyzed there is good bolus clearance findings might suggest jackhammer esophagus.? I do not believe that the patient has symptoms that would correlate with jackhammer esophagus.? She does have reflux symptoms.? She wanted to hold off till the summer 2021.? We will invite her to return at that time.? I do believe that she would be a candidate for laparoscopic surgical repair of her hiatal hernia likely with a toupet reflux procedure.? ROS General General: Yes weight change and fatigue; No appetite, colon cancer, breast cancer or weakness HEENT HEENT: Yes difficulty swallowing; No eye injury, eye surgery, swollen glands or hoarseness Endo Endocrine: No thyroid disease, diabetes mellitus, thyroid cancer, Hair loss, heat intolerance or cold intolerance Musc Musculoskeletal: Yes back problems; No arthritis, rheumatoid arthritis, gout or joint pain Cardio Cardiovascular: No murmur, pacemaker, heart disease, atrial fibrillation, high blood pressure, heart attack, heart stent, palpitations, shortness of breat with exertion or chest pain Psych Psychiatric: Yes depression and anxiety; No hearing voices Resp Respiratory: No shortness of breath, No sleep apnea, No cough, No COPD, No asthma, No emphysema and No wheezing Gastro Gastrointestinal: No abdominal pain, Yes nausea or vomiting, No diarrhea, No constipation, No blood in stool, No acid reflux, No hemorrhoids, No ulcers, No gallbladder problem and No black,tarry stools Arnaud Hematologic: No blood thinners, No blood disorders, No bleeding, No anemia and No blood clots Neuro Neurologic: No weakness Exam Const General: cooperative, healthy appearing, comfortable and no acute distress [facility] Head: normal to inspection Eyes General: appearance normal, both eyes and all related structures Neck Neck: normal visual inspection Neck mass: No Resp Effort & Inspection: normal respiratory effort and able to speak in complete sentences Auscultation: clear to auscultation bilaterally Cardio Rate: regular rate Rhythm: regular rhythm GI Inspection: normal to inspection Palpation: soft and nontender Auscultation: normal bowel sounds Musc Cervical Spine: normal cervical lordosis Thoracic/Lumbar Spine: thoracic and lumbar spine normal to inspection Skin General: no rashes or lesions noted Neuro General: no focal motor deficits and CN's II-XI intact bilaterally Extrem General: normal to inspection Psych Appearance: grossly normal Affect: normal affect Assessment and Plan Assessment and Plan (1) Hiatal hernia with gastroesophageal reflux: ?Status:?Acute ?Plan: Dr. Leos will plan to perform a laparoscopic toupet fundoplication hiatal hernia repair. Procedure details, risks and benefits have been reviewed. Patient has had the opportunity to ask and have questions answered. Patient verbally understands and agrees with the plan. Recovery instructions and diet recommendations have been provided to the patient Update history and physical as per Billie Pace PA-C. I have re-examined the patient. There are no clinical changes since date of exam. Des Leos M.D., F.A.C.S.
--- NOTE | 2022-02-08 06:59 | DCINST_ITS ---
Discharge Instructions Procedure General Surgery Diet Discharge Diet: - (Diet as per provided written instructions) Activity Discharge Activity: May Not Drive (for 3-5 days or while taking narcotic pain medicine.) May shower in (days): 1 Lifting Restrictions: 10 pounds Dressing / Incision Call your doctor if your incision/area has: Continuous Slow Oozing, Sudden Increased Bleeding, Increased Pain/ Swelling, Increased Redness and Foul Smelling Discharge Call your doctor if you observe: Fever of 101 or Higher Suture Line Care: Avoid Pulling/Pushing and Avoid Pinching/Bending Additional Dressing/Incision Instructions:: Change or remove dressing in 4 days. Leave steri-strips in place for 1 week. Follow Up Care Please Follow Up With: Des Leos MD When: Call [phone] to make an appointment to be seen in about 10 days. Test Results: Test results from this visit will be discussed in further detail at your follow- up appointment, if applicable. Discharge Plan Admission Attending Provider: Des Leos Primary Care Provider: Lolis Miranda Discharge Orders/Prescriptions Prescriptions: No Action escitalopram oxalate [Lexapro] 5 mg tablet 10 mg PO DAILY lorazepam 0.5 mg tablet 0.5 mg PO DAILY PRN (Reason: Anxiety) omeprazole 20 mg capsule,delayed release(DR/EC) 20 mg PO DAILY PRN (Reason: GERD) valacyclovir [Valtrex] 1 gram tablet 1,000 mg PO DAILY PRN (Reason: Cold Sores) cetirizine [24Hour Allergy] 10 mg tablet 10 mg PO DAILY PRN (Reason: ALLERGIES) Referrals / Follow Up: Lolis Miranda MD [Primary Care Provider] - Disposition Disposition (needs filled in before D/C Order can be placed): Home, Self Care
[2022-02-08] MEDS: Cefazolin 2 GM in 0.9% Normal Saline 100 ML IV (07:28)
--- NOTE | 2022-02-08 07:30 | HERN_PTH ---
PATIENT: BRIANNA LUNA LOC: [facility] [place] U#:[id number] AGE/SX: 46/F ROOM: RE02/08/[address]: Dr. Des Leos MD : 1975 BED: DIS: 02/08/2022 SPEC #: [id number] RECD: 02/08/22 09:23 STATUS: RENÉE VALARIE #: [id number] LUZ: 02/08/22 07:[address]: Des Leos DEPT: SURGICAL PATHOLOGY RECD BY: Loreta Carlisle ENTERED: 02/08/22 11:54 SP TYPE: Hernia OTHR DR: Dr. Lolis Miranda MD Tissues: HERNIA Procedures: Surgery Specimen Level IV HEADER OPERATION: Laparoscopic Toupet fundoplication with hiatal hernia repair PRE-OP DIAGNOSIS: Hiatal hernia with GERD TISSUE SUBMITTED: Hiatal hernia sac MICROSCOPIC DIAGNOSIS Hiatal hernia sac: A piece of mature adipose tissue and three benign lymph nodes, clinically hiatal hernia sac. MAXIME:michele 02/09/2022 MICROSCOPIC DESCRIPTION Slides are reviewed. GROSS DESCRIPTION Received in fixative is one container labeled with the patient's name and designated hiatal hernia sac. The specimen consists of an irregular piece of montelongo-pink soft tissue measuring 5 x 1.5 x 0.5 cm. Sections do not reveal any mass lesion. The entire specimen is submitted in two cassettes. / MAXIME:michele 02/08/2022 TC:5 CPT: 17369
[2022-02-08] MEDS: Bupivacaine 0.25% 30 ML Vial (07:40)
[2022-02-08] MEDS: Lubricating Jelly 60 GM Tube 30 GM (08:10)
--- NOTE | 2022-02-08 10:17 | OP.PCM_ITS ---
Report of Operation Date of Procedure: 02/08/22 Pre-Operative Diagnosis: Intractable gastroesophageal reflux disease with esoph ageal dysphagia and obstructive Schatzki ring Post-Operative Diagnosis: Same Surgery/Procedure Performed:: Laparoscopic repair of hiatal hernia with lap aroscopic toupet procedure and subsequent esophagogastroduodenoscopy post procedure. Description of Surgical Findings:: Timeout and informed consent was obtained. 46-year-old female was taken to the operating placed upon the table underwent general endotracheal intubation esthesia. Ancef 2 g were given intravenously. She was then placed in a low lithotomy position. She was on a beanbag for support. Buttock roll and support was provided. The abdomen was sterilely prepped and draped. Ioban draping was used as well. 0.25% Marcaine was used as a local anesthetic. Throughout the procedure total 30 cc was used. Superior right paramidline abdomen local is instilled 5 mm incision created and then a 5 mm Visiport technology was used to gain access. The abdomen was insufflated with CO2 to a pressure of 10 mmHg pressure. Clean access was achieved. A 10 mm port was placed in the left upper abdomen of the umbilicus and 2 more 5 mm ports were placed on the left subcostal area a Viet retractor was placed through an epigastric 5 mm incision and used to help support the left lobe of the liver. There was fibrofatty tissue and adhesions of the gastroesophageal junction to the epiphrenic ligament and bilateral crura. Carefully and tediously this was dissected free with blunt dissection harmonic scalpel dissection. Great care was taken to leave both crura completely peritonealized. With effort I was able to get retroesophageal axis identify the posterior vagus nerve protected that with esophagus as I placed 1/4 inch [place] drain around the EG junction this was used to elevated and complete a very generous posterior fat pad dissection to assure that the EG junction was well within the abdomen. I then transected the short gastrics with of the fundus with the harmonic. Hemostasis was nicely intact and I additionally placed a piece of fibular in the splenic blood. The left elias was carefully dissected free and then and a 360 degree fashion around the esophagus within the mediastinum I cleared attachments for 6 additional centimeters. This allowed for good 4 cm placement of the esophagus well within the abdomen. Repaired the diaphragm with 0 Ethibond sutures which were pledgeted 2 sutures required. 48 Korean bougie was placed demonstrating that there was good approximation of the diaphragm with remaining patency particular at the EG junction. Took the fundus of the stomach wrapped around the posterior aspect of the esophagus I secured the wrap portion of the stomach to the elias with a interrupted 0 Ethibond. I then performed the right portion of the wrap placed in the apical suture to the esophagus epiphrenic ligament into the wrap portion of the fundus and then in a running fashion over 3 cm approximated the wrap portion of the stomach to the anterior slightly lateral wall of the esophagus. Good positioning was achieved. I then checked the fundus portion and on the left side placed an apical suture so as to place the fundus to the epiphrenic ligament into the esophagus. Was secured with intracorporeal tying and then in a running fashion approximated the stomach to the anterior wall of the esophagu s. I had approximately 270 degree if not slightly more 290 degree wrap. Hemostasis was intact. Good positioning was felt to been achieved. I then performed a esophagogastroduodenoscopy which will be placed in probation system. This demonstrated the wrap to be in place no air leak. The stomach was deflated through an orogastric tube. The 10 mm port site was closed with a grainy needle in [id number] of 0 Vicryl.. Then I performed a mini tap block using 0.25% Marcaine under visualization and placed local at several different locations in the left subcostal region. Finally removed trochars allow the abdomen deflated the CO2 skin edges were approximated opted for Monocryl subdermal stitches Steri-Strip Telfa OpSite dressings applied. Sponge and instrument and needle counts were reported to the surgeon to be correct. It is of additional note that during the procedure I excised the fibrofatty hernia sac tissue at the EG junction using a Monnig scalpel and that is submitted to specimen. Specimen is hernia sac. Blood loss minimal. Drains none. The patient was taken to the recovery area in satisfactory addition without apparent complication Des Leos M.D., F.A.C.S. Surgeon: Des Leos Type of Anesthesia: General
--- NOTE | 2022-02-08 13:55 | SUR.PHASEII ---
AT BEDSIDE, TAKING PO FLUIDS/CLEARS WELL. DENIES NAUSEA, EPIGASTRIC PAIN /. NO URGE TO VOID AT THIS TIME.
[2022-02-08] MEDS: HYDROcodone Bitartrate/Apap 5/325 Tablet PO (14:44)
== END 2022-02-08 15:34 | disposition home or self-care (01) ==
LOC: SDC 06:06 → AC 06:07
PROVIDERS: PCP Family Medicine; Referring Provider Surgery; Visit Provider Surgery
PROC: (CPT 43325; principal; 2022-02-08 07:10)
DX: K44.9 Diaphragmatic hernia without obstruction or gangrene (principal); F41.9 Anxiety disorder, unspecified; F32.A Depression, unspecified; K21.9 Gastro-esophageal reflux disease without esophagitis; Z87.891 Personal history of nicotine dependence; Z79.899 Other long term (current) drug therapy
CPT/HCPCS: 43281; 00790; 88302; 88305; J7120; J2405; J3490

== ENCOUNTER 2023-12-27 06:25 | Day surgery (SDC) | payer OTHER, SELFPAY ==
[2023-12-27 06:52] VITALS: BP 116/78; PULSE 64; RESP 16; TEMP 37; O2SAT 98; BMI 26.4
[2023-12-27] MEDS: Lactated Ringers 1,000 ML 15 ML IV (06:55)
--- NOTE | 2023-12-27 07:09 | HP.PCM_ITS ---
HPI - General General Date of Service: 12/27/23 Chief Complaint: Screening for intestinal cancer HPI Narrative BRIANNA LUNA, is a 48 F who presents for screening colonoscopy today. She has not had a previous one. I assisted her with a laparoscopic toupet procedure on February 08, 2022. She denies any acute health problems. [facility] Medical History (Updated 12/21/23 @ 14:14 by Shelley Lacy) Wears contact lenses Arthritis GERD (gastroesophageal reflux disease) Wears glasses Depression Anxiety Alcohol use Anemia Restless legs Back pain Difficulty swallowing History of hiatal hernia Former smoker Non-smoker History of irregular heartbeat Dysphagia Anxiety and depression Hiatal hernia High cholesterol Bilateral headaches Environmental allergies Home Medications ?Medication ?Instructions ?Recorded ?Last Taken ?Type escitalopram oxalate 5 mg tablet 10 mg PO DAILY 06/10/21 12/26/23 History (Lexapro) lorazepam 0.5 mg tablet 0.5 mg PO DAILY PRN anxiety 05/30/23 Unknown History cetirizine 10 mg tablet (24Hour 10 mg PO DAILY PRN allergy symptoms 12/21/23 12/26/23 History Allergy) Allergy/AdvReac Type Severity Reaction Status Date / Time No Known Allergies Allergy Verified 12/21/23 14:09 Family History Other Breast cancer CVA (cerebral vascular accident) Cancer Heart disease Surgical History (Updated 12/21/23 @ 14:14 by Shelley Lacy) History of Terrence fundoplication History of endometrial ablation History of repair of hiatal hernia History of esophagogastroduodenoscopy (EGD) (~2016) S/P sinus surgery History of tubal ligation Social History household members: spouse and children number of children: 2 current occupational status: employed current occupation: [employer] history of recent travel: No sexually active: Yes Smoking Status: Former smoker alcohol intake: current alcohol intake frequency: holidays/special occasions only details: 3-4 times a day substance use type: does not use what type of physical activity do you participate in: walking frequency: daily seatbelt use: always do you feel safe at home: Yes additional social history: - [employer] Constitutional Constitutional: Reports systems reviewed and no addt'l complaints, except as documented Cardiovascular Cardiovascular: Denies chest pain Respiratory/Chest Respiratory/Chest: Denies shortness of breath at rest Gastrointestinal Gastrointestinal: Denies abdominal pain, change in bowel habits, hematochezia or melena Vital Signs Vital Signs Vital Signs: 12/27/23 06:50 12/27/23 06:52 Temperature 98.6 F Temperature Source Temporal Pulse Rate 64 Respiratory Rate 16 Respiratory Pattern Normal Blood Pressure 116/78 Blood Pressure Mean 90 Blood Pressure Source Monitor Blood Pressure Position Semi-Fowlers Blood Pressure Location Right Arm Pulse Ox 98 Oxygen Delivery Method Room Air Weight Weight: 154 lb 1.65 oz Body Mass Index (BMI) 26.4 Physical Exam Const alert, oriented x3 and no apparent distress General Appearance: cooperative and comfortable Eyes General Eye: normal appearance of both eyes Neck General: normal visual inspection Chest inspection of chest normal Resp Effort and Inspection: able to speak in complete sentences and symmetric chest movement Auscultation: clear to auscultation bilaterally Cardio regular rate and regular rhythm GI soft to palpation, non-tender and non-distended Extremity no calf tenderness Neuro oriented x3 Psych thought process normal Assessment & Plan Assessment/Plan (1) Encounter for screening for malignant neoplasm of colon: PLAN: The patient presents today for screening colonoscopy with possible biopsy or polypectomy as indicated. She has not had a previous one. She presents via open access. There is no family history of colon cancer or colon polyps. She states that she is doing well since her laparoscopic toupet procedure that I assisted her with in 2021. Des Leos M.D., F.A.C.S.
--- NOTE | 2023-12-27 08:19 | OP.COLON_ITS ---
Patient Name: Blanche Medel Procedure Date: 12/27/2023 7:46 AM Date of : 1975 Age: 48 Procedure: Colonoscopy Indications: Screening for colorectal malignant neoplasm Providers: Des Leos MD Referring MD: Lolis Miranda Medicines: See the Anesthesia note for documentation of the administered medications Patient Profile: Last Colonoscopy: none. The patient's first colonoscopy is today. Complications: No immediate complications. Procedure: Pre-Anesthesia Assessment: - Prior to the procedure, a History and Physical was performed, and patient medications and allergies were reviewed. The patient's tolerance of previous anesthesia was also reviewed. The risks and benefits of the procedure and the sedation options and risks were discussed with the patient. All questions were answered, and informed consent was obtained. Prior Anticoagulants: The patient has taken no anticoagulant or antiplatelet agents. ASA Grade Assessment: I - A normal, healthy patient. After reviewing the risks and benefits, the patient was deemed in satisfactory condition to undergo the procedure. After I obtained informed consent, the scope was passed under direct vision. Throughout the procedure, the patient's blood pressure, pulse, and oxygen saturations were monitored continuously. The adult colonoscope was introduced through the anus and advanced to the cecum, identified by appendiceal orifice and ileocecal valve. The colonoscopy was technically difficult and complex due to a tortuous colon. The patient tolerated the procedure well. The quality of the bowel preparation was excellent. The terminal ileum and the ileocecal valve were photographed. Scope In: 7:53:18 AM Scope Withdrawal Time 0 hours 5 minutes 8 seconds Scope Out: 8:14:19 AM Total Procedure Duration Time 0 hours 21 minutes 1 second Findings: Hemorrhoids were found on perianal exam. Scattered diverticula were found in the entire colon. The colon (entire examined portion) was moderately tortuous. Advancing the scope required changing the patient to a supine position and using manual pressure. Impression: - Hemorrhoids found on perianal exam. - Diverticulosis in the entire examined colon. - Tortuous colon. - No specimens collected. Recommendation: - Discharge patient to home. - Resume previous diet. - Continue present medications. - Repeat colonoscopy in 10 years for screening purposes. Procedure Code(s): --- Professional --- 63606, Colonoscopy, flexible; diagnostic, including collection of specimen(s) by brushing or washing, when performed (separate procedure) Diagnosis Code(s): --- Professional --- Z12.11, Encounter for screening for malignant neoplasm of colon K64.9, Unspecified hemorrhoids K57.30, Diverticulosis of large intestine without perforation or abscess without bleeding Q43.8, Other specified congenital malformations of intestine CPT copyright 2021 [employer] [place] [employer]. All rights reserved. The codes documented in this report are preliminary and upon professional fee coder review may be revised to meet current compliance requirements. Des Leos MD 12/27/2023 8:19:08 AM This report has been signed electronically. Number of Addenda: 0 Note Initiated On: 12/27/2023 7:46 AM
--- NOTE | 2023-12-27 08:19 | OP.CCLET_ITS ---
12/27/2023 Lolis Miranda [place] [place] [id number] [address] Re : Colonoscopy procedure for Blanche Medel Dear Dr. Miranda This procedure was performed on Wednesday, December 27, 2023. My impressions and recommendations are as follows: Impressions : - Hemorrhoids found on perianal exam. - Diverticulosis in the entire examined colon. - Tortuous colon. - No specimens collected. Recommendations : - Discharge patient to home. - Resume previous diet. - Continue present medications. - Repeat colonoscopy in 10 years for screening purposes. My findings are described in the full procedure note, which is enclosed. If I can be of further assistance, please feel free to contact me at Doctor phone number(s): Work: . Sincerely, Des Leos MD 12/27/2023 8:19:08 AM This report has been signed electronically.
[2023-12-27 08:20] VITALS: BP 116/78; BP 99/76; PULSE 74; RESP 16; TEMP 36.6; O2SAT 98
[2023-12-27 08:25] VITALS: BP 103/63; BP 116/78; PULSE 69; RESP 16; O2SAT 98
[2023-12-27 08:30] VITALS: BP 100/68; BP 116/78; PULSE 68; RESP 16; TEMP 36.5; O2SAT 98
[2023-12-27 08:47] VITALS: BP 116/78
== END 2023-12-27 08:49 | disposition home or self-care (01) ==
LOC: EN 06:26 → AC 06:47
PROVIDERS: PCP Family Medicine; Referring Provider Family Medicine; Visit Provider Surgery
PROC: 0DJD8ZZ Inspection of Lower Intestinal Tract, Via Natural or Artificial Opening Endoscopic (ICD-10-PCS; CPT 45378; principal; 2023-12-27 07:25)
DX: Z12.11 Encounter for screening for malignant neoplasm of colon (principal); Z87.891 Personal history of nicotine dependence; K64.9 Unspecified hemorrhoids; E78.00 Pure hypercholesterolemia, unspecified; F41.8 Other specified anxiety disorders; Z79.899 Other long term (current) drug therapy; Z98.51 Tubal ligation status; Q43.8 Other specified congenital malformations of intestine
CPT/HCPCS: 45378; J7120; J2405

== ENCOUNTER 2024-01-25 11:42 | Outpatient (CLI) | payer OTHER, SELFPAY ==
--- NOTE | 2024-01-25 14:10 | RAD_ITS ---
INDICATION: LATERAL ELBOW PAIN EXAMINATION/TECHNIQUE: X-RAY - RIGHT XR Elbow Min 3 Views COMPARISON: None. FINDINGS: 3 views of the right elbow. BONES: Normal anatomic alignment without evidence of fracture or subluxation. No concerning bony lesion or abnormal sclerosis to suggest lesion. JOINTS: No significant degenerative change. SOFT TISSUES: Unremarkable. RAD/Elbow min 3 Views IMPRESSION: No acute osseous abnormality of the right elbow. Electronically Signed: Gómez Jenkins MD at 5:22 EDT ,
--- NOTE | 2024-01-25 14:17 | NEURO ---
NCS and/or EMG Patient Report Ordering Doctor: Virgie Quigley DATE OF SERVICE: 01/25/24 Blanche presents for electrodiagnostic testing of the right upper limb. She reports numbness and tingling in the right forearm and pain along the medial elbow. Electrodiagnostic findings: Right median motor nerve demonstrates normal distal latency, amplitude and conduction velocity. The right ulnar motor nerve demonstrates normal distal latency, amplitude and conduction velocity across the elbow. Normal right median and ulnar F?wave. Sensory responses within normal limits. Needle EMG testing was performed in the right upper limb. All muscles tested showed no evidence of denervation with normal motor unit action potentials. Electrodiagnostic impression: This is a normal electrodiagnostic study in the right upper limb. There is no electrodiagnostic evidence for peripheral neuropathy, including carpal tunnel or cubital tunnel syndrome. There is no electrodiagnostic evidence for cervical radiculopathy. Multi Select Codes Neurology Neurology Interp Codes: 42768-80 Musc test done w/n test comp (interp) and 30904-76 Nrv cndj test 7-8 studies (interp)
== END 2024-01-25 23:59 | disposition home or self-care (01) ==
PROVIDERS: PCP Family Medicine; Referring Provider Physician Assistant Surgical; Visit Provider Physician Assistant Surgical
DX: M77.11 Lateral epicondylitis, right elbow (principal)
CPT/HCPCS: 73080; 95886; 95910

== ENCOUNTER → 2024-02-24 | Outpatient (CLI) | payer OTHER, SELFPAY ==
--- NOTE | 2024-02-24 11:12 | RAD_ITS ---
STUDY: X-RAY - RIGHT SHOULDER REASON FOR EXAM: Female, 48 years old. PAIN TECHNIQUE: 5 views of the right shoulder. COMPARISON: None. FINDINGS: Normal glenohumeral articulation. There is minimal acromioclavicular arthrosis. Normal acromion. Normal humeral head and visualized proximal humerus. The soft tissue structures are unremarkable. There is no demonstrated fracture. Normal visualized pulmonary apex. RAD/Shoulder min 2 Views IMPRESSION: Minimal acromioclavicular arthrosis. No demonstrated fracture. Electronically Signed: Omkar Kee MD at 16:06 EDT ,
== END | disposition home or self-care (01) ==
LOC: RAD 11:10
PROVIDERS: PCP Family Medicine; Referring Provider Family Medicine; Visit Provider Family Medicine
DX: M25.511 Pain in right shoulder (principal)
CPT/HCPCS: 73030

== ENCOUNTER 2024-05-02 09:30 | Outpatient (RCR) | payer OTHER, SELFPAY ==
--- NOTE | 2024-04-02 19:23 | HP.PTEVAL_ITS ---
Patient's Visit Information Visit Information Visit Information: BRIANNA LUNA is a 48 year old F referred to Physical Therapy by Dr. Melvin Gold, with a diagnosis of PAIN IN RIGHT ELBOW ,PARESTHESIA OF SKIN. Date of Evaluation: 04/02/24 Physical Therapist: Jose Eldridge, PT, Cert MDT, OCS Visit Plan Frequency: 2x /Week Duration: 4 Weeks Plan: PT INTERVENTIONS ROM ELBOW ,GRADED STRENGTHENING ELBOW BICEPS/TRICEPS ,FOREARM ,AND MODALITIES Subjective Subjective: This 48 female presents to physical therapy with right elbow pain. Patient has olecranon pain since November 2023 and noticed pain after golfing. Patients symptoms progressively worse. Tried ice. Eventually seen [facility] tries prednisone helped couple days and tried voltaren cream helped. Patient seen DR Gold tried cortisone injection helped some . Did x- rays - elbow. Patient had ENG testing due to paresthesia but has improved worse. Aggravating throwing darts extension ,holding coffee pot ,open jar ,walking. Alleviating rest. Worse in AM ,unable to straighten locks ups. Patient pain affects golfing ,job demands ..Patient sleeping good. 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 STRENGTH ( dynamometer):55 # right ,left 60# Special Tests R Elbow Flexion Test - Cubital Tunnel: Negative R Elbow Tinels - Ulnar n.: Negative R Elbow Valgus Stress Test - MCL Instability: Negative R Elbow Varus Stress Stest - MCL Instability: Negative R Elbow Lat Epiconylitis - as named: Negative Balance/Special Test Scores Quick DASH Score: 32.5000 Goals Goal 1:: Patient to be I with HEP for elbow Goal Time Frame: 4-6 Weeks Goal 2:: Patient to demonstrate 50% with less pain and improved function with work demands and opening jar Goal Time Frame: 4-6 Weeks Goal 3:: Patient will improve ability to extension /grasping cumulative with less catching 60% OF THE TIME Goal Time Frame: 4-6 Weeks Goal 4:: Patient to improve quick dash by 5 points to improve QOL Goal Time Frame: 4-6 Weeks Rehabilitation Potential Physical Therapy Diagnosis: This patient has elbow pain with tricep extension worse in morning with catching and repetitive extension activities hold something in front and activity like dart throwing with possible signs and s ymptoms loose body if not better will need possible MRI thus benefit from skilled PT Rehabilitation Potential: Fair Anticipated Interventions Patient/Client Instruction: Educate patient on: Condition and Plan of Care For the Purpose of:: To decrease pain, To increase ROM, To improve muscle performance and motor function, To improve ability to perform ADL's, To increase tolerance to activity/condition/position, To improve ability of physical actions for home/community/work/leisure, To improve gait and locomotor functions, To improve health of tissue, To decrease soft tissue restriction, To increase flexibility/ROM and To improve tolerance to ADL's Therapeutic Exercise to Include: Strength training, Flexibilty training and Active ROM Comment: ELBOW For the Purpose of:: To decrease pain, To increase ROM, To improve muscle performance and motor function, To improve ability to perform ADL's, To increase tolerance to activity/condition/position, To improve ability of physical actions for home/community/work/leisure, To improve health of tissue, To decrease soft tissue restriction, To increase flexibility/ROM and To reduce risk of recurrence TENS: Yes IF ES: Yes Cryotherapy (ice pack, ice massage): Yes Thermo therapy (hot pack): Yes Ultrasound (thermal/non thermal): Yes For the Purpose of:: To decrease pain, To decrease swelling/inflammation, To increase ROM, To improve nutrient delivery to tissue, To increase oxygenation perfusion, To improve health of tissue, To decrease soft tissue restriction and To increase flexibility/ROM Text: Thank you for the opportunity to evaluate your patient. For Medicare and Medicare HMO plans, please review the plan of care and approve it. It will need to be FAXED BACK to us at [phone] for Medicare purposes. For Medicare only, by signing this I certify the plan of care. Please let me know if there are questions or concerns regarding this plan of care. Physician Signature: Date:
--- NOTE | 2024-05-02 09:59 | HP.PTDCSUM_ITS ---
Discharge Summary D/C summary: It has been my pleasure to treat BRIANNA LUNA referred by Dr. Melvin Gold DO, with the diagnosis of PAIN IN RIGHT ELBOW ,PARESTHESIA OF SKIN for a total of 7 visit(s). Discharge Date: Please see the following information for a summary of their discharge status. Subjective Subjective: Pain continues to be painful with use housework and job demands Intermittent pain RTD Pain Right Elbow: Pain Intensity (Out of 10): 2 Overall Improvement % Improvement: 0 Objective Objective/Function: POSTURE: mild forward posture PALAPTION: mild tenderness medial elbow NEURO: denies paresthesia/tingling AROM: elbow flexion 0-135 degrees pain at ER occasionally catching in elbow MMT: bicep brachii ,brachioradialis ,brachialis 4/5 , supination 4/5 ,mild pain ,pronation 4/5 ,wrist flexors /extensors 4/5,tricep 4-/5 RESEARCH ANALYST STRENGTH ( dynamometer):42 # right ,left 60# Goals Goal 1:: Patient to be I with HEP for elbow Goal Progress: Progressing Goal 2:: Patient to demonstrate 50% with less pain and improved function with work demands and opening jar Goal Progress: Not Progressing Goal 3:: Patient will improve ability to extension /grasping cumulative with less catching 60% OF THE TIME Goal Progress: Not Progressing Goal 4:: Patient to improve quick dash by 5 points to improve QOL Goal Progress: Not Progressing Plan Plan: D/C RTD POSSIBLE MRI D/C Information d/c sentence: If there are questions or concerns regarding this patient's physical therapy, please feel free to call me at [phone]. Thank you for the referral of this patient. Sincerely, Jose Eldridge, PT, Cert MDT, OCS Balance/Gait/Functional tests Balance/Special Test Scores Quick DASH Score: 29.5450 Improvement % Improvement: 0
== END 2024-05-02 19:00 | disposition home or self-care (01) ==
LOC: PT 09:30
PROVIDERS: PCP Family Medicine; Referring Provider Student in an Organized Health Care Education/Training Program; Visit Provider Student in an Organized Health Care Education/Training Program
DX: M25.521 Pain in right elbow (principal); R20.2 Paresthesia of skin; M77.11 Lateral epicondylitis, right elbow
CPT/HCPCS: 97035; 97110; 97140; 97162; 97530

== ENCOUNTER → 2024-06-26 | Outpatient (CLI) | payer OTHER, SELFPAY ==
--- NOTE | 2024-06-26 16:00 | BI_ITS ---
MAMMOGRAPHY - BILATERAL SCREENING REASON FOR EXAM: Female, 48 years old. Routine annual screening examination. PERTINENT HISTORY: Aunt with breast cancer. TECHNIQUE: Digital bilateral breast dona (3D mammographic acquisition) in the CC and MLO projections. 2-D mediolateral oblique (MLO) and craniocaudad (CC) views of both breasts were obtained. CAD: Full Field Digital Mammography with Computer Added Detection was performed. COMPARISON: Comparison is made with prior study of August 26, 2021 and May 27, 2020. FINDINGS: Breast Composition: The breasts are heterogeneously dense, which may obscure small masses. There are no dominant masses or suspicious calcifications. Stable bilateral axillary lymph nodes. No other significant abnormalities are identified. There has been no significant change since the prior study. BI/SCRN MAMM (CAD)W/DONA BILAT IMPRESSION: Stable bilateral screening mammogram. Yearly follow-up mammogram recommended. (A) ASSESSMENT CATEGORY: BIRADS Category 2: Benign. A letter regarding these results will be sent to the patient by the facility within 30 days. Approximately 10% of breast cancers are not detected by mammography. A normal mammogram should not delay biopsy of a clinically suspicious abnormality. [id number] Electronically Signed: Marcus Jackson MD at 8:11 EST ,
== END | disposition home or self-care (01) ==
LOC: OPBI 16:00
PROVIDERS: PCP Family Medicine; Referring Provider Family Medicine; Visit Provider Family Medicine
DX: Z12.31 Encounter for screening mammogram for malignant neoplasm of breast (principal)
CPT/HCPCS: 77063; 77067

== ENCOUNTER → 2024-06-27 | Outpatient (CLI) | payer OTHER, SELFPAY ==
--- NOTE | 2024-06-27 17:34 | MRI_ITS ---
STUDY: MRI RIGHT ELBOW REASON FOR EXAM: Female, 48 years old. LATERAL EPICONDYLITIS TECHNIQUE: Standardized fat and water weighted pulse sequences were obtained in all 3 orthogonal planes. COMPARISON: Right elbow radiographs dated 01/25/2024. FINDINGS: There is a multiseptated ganglion cyst at the anterior margin of the radiocapitellar joint, overall measuring 0.8 cm AP, 1.1 cm transverse, and 1.5 cm craniocaudad. Intact radio-capitellum articulation. Normal radial collateral ligamentous complex. There is mild tendinosis of the common extensor tendon origin (coronal STIR series 7 image 10). Normal ulnotrochlear articulation. Normal ulnar collateral ligamentous complex. Normal common flexor tendon. The cubital tunnel is normal, with a normal ulnar nerve. Normal biceps tendon and distal insertion. Normal lacertus fibrosis. Normal brachialis musculotendinous insertion. Normal triceps tendon and teno-osseous insertion. Normal olecranon process. The visualized distal humerus, proximal radius, and ulna are normal. The visualized muscles of the distal arm and proximal forearm are normal. The soft tissue structures are unremarkable. MRI/Upper Ext Joint Only(Routine) IMPRESSION: 0.8 x 1.1 x 1.5 cm multiseptated ganglion cyst at the anterior margin of the radiocapitellar joint. Mild tendinosis of the common extensor tendon origin. Electronically Signed: Omkar Kee MD at 10:08 [facility] ,
== END | disposition home or self-care (01) ==
LOC: MRI 17:02
PROVIDERS: PCP Family Medicine; Referring Provider Student in an Organized Health Care Education/Training Program; Visit Provider Student in an Organized Health Care Education/Training Program
DX: M77.11 Lateral epicondylitis, right elbow (principal); M25.521 Pain in right elbow
CPT/HCPCS: 73221

== ENCOUNTER 2024-11-01 05:58 | Day surgery (SDC) | payer OTHER, SELFPAY ==
--- NOTE | 2024-10-18 09:26 | EKG12_ITS ---
Test Reason : PRE OP Blood Pressure : */* mmHG Vent. Rate : 66 BPM Atrial Rate : 66 BPM P-R Int : 120 ms QRS Dur : 76 ms QT Int : 436 ms P-R-T Axes : 9 19 25 degrees QTcB Int : 457 ms Normal sinus rhythm Normal ECG Confirmed by PAMELA LEMON, JOSE G ([id number]), index editor SHEYLA KNOX ([id number]) on 10/19/2024 9:48:32 AM Referred By: Melvin Gold Confirmed By: JOSE G SANTIAGO MD
[2024-10-24 16:46] LABS: Absolute Lymphocyte Count 2.41 X10^3/uL (0.83-4.51); Absolute Neutrophil Count 3.1 X10^3/uL (2.0-7.7); Basophil# 0.08 X10^3/uL; Basophil% 1.2 % (0-1); Eosinophil# 0.44 X10^3/uL; Eosinophils% 6.5 % (0-5); Hematocrit 36.9 % (37-47); Hemoglobin 12.3 g/dL (12.0-15.0); Lymphocyte # 2.41 X10^3/ul (0.83-4.51); Lymphocyte % 35.4 % (19-41); Mean Corp Hgb Conc 33.3 g/dL (32-36); Mean Corpuscular Hgb 31.4 pg (27.0-32.0); Mean Corpuscular Volume 94.1 fL (81-99); Mean Platelet Vol. 10.2 fl (6.2-12.0); Monocyte# 0.81 X10^3/uL; Monocyte% 11.9 % (0-10); NRBC Flagged by Analyzer 0 % (0-5); Neutrophil # 3.05 X10^3/uL (2.7-7.7); Neutrophil % 44.7 % (47-70); Platelet Count 284 K/mm3 (150-450); RBC Distribution Width CV 13.8 % (11.6-14.6); RBC Distribution Width SD 47.6 fl (35.1-43.9); Red Blood Count 3.92 M/mm3 (4.2-5.4); White Blood Count 6.8 K/mm3 (4.4-11.0)
[2024-10-24 17:19] LABS: Anion Gap 10 (5-15); BUN 14 mg/dL (4-19); BUN/Creat Ratio 15.5 RATIO (10-20); Calcium,Total 9.1 mg/dL (7.6-11.0); Carbon Dioxide 23.6 mmol/L (21.0-32.0); Chloride 102 mmol/L (98-108); Creatinine, Serum 0.88 mg/dL (0.70-1.20); EST Glomerular Filtration Rate 80 (>60); Glucose 92 mg/dL (70-99); Potassium 4.3 mmol/L (3.3-5.1); Sodium Level 136 mmol/L (133-145)
[2024-11-01] VITALS (9 sets, daily range): BP systolic 103–116; BP diastolic 62–87; PULSE 61–88; RESP 16–18; TEMP 35.7–37.1; O2SAT 95–99; BMI 24.9
[2024-11-01] MEDS: 0.9% Normal Saline (1000mL) 1,000 ML 15 ML IV (06:40)
--- NOTE | 2024-11-01 06:58 | PCM.PRE.AN2 ---
ASA Classification* ASA Classification ASA Classification: 1 Assessment & Plan Anesthesia* Anesthesia Assessment Anesthesia Assessment: Discussed sedation and/or anesthesia options, risks, benefits, and alternatives with patient/parents/legal guardian/POA. Questions invited. The patient/parents/legal guardian/POA seems to understand and agrees to proceed with anesthesia plan. Reviewed the physical assessment, medical history, allergy history and patient home medications list prior to surgery/procedure/anesthetic and documented any changes. Performed airway and anesthesia risk assessments. Anesthesia Type Anesthesia Type: General History Source History Obtained from:: Patient Anesthesia Focused Assessment* Temperature: 98.7 F Pulse Rate: 61 Blood Pressure: 106/63 Respiratory Rate: 16 Pulse Ox: 98 Oxygen Delivery Method: Room Air Airway Assessment Mouth opens: 1 cm Mallampati Score: I Teeth Condition: Intact Neck Range of motion (ROM): Full ROM Focused Labs Anesthesia Preop lab: CBC WBC 6.8 K/mm3 (4.4-11.0) 10/24/24 15:11 10/24/24 RBC 3.92 M/mm3 (4.2-5.4) L 10/24/24 15:11 10/24/24 Hgb 12.3 g/dL (12.0-15.0) 10/24/24 15:11 10/24/24 Hct 36.9 % (37-47) L 10/24/24 15:11 10/24/24 Plt Count 284 K/mm3 (150-450) 10/24/24 15:11 10/24/24 CHEMISTRY Potassium 4.3 mmol/L (3.3-5.1) 10/24/24 15:11 10/24/24 Sodium 136 mmol/L (133-145) 10/24/24 15:11 10/24/24 Phosphorus 3.3 mg/dL (2.5-4.9) 02/22/24 07:47 02/22/24 BUN 14 mg/dL (4-19) 10/24/24 15:11 10/24/24 Creatinine 0.88 mg/dL (0.70-1.20) 10/24/24 15:11 10/24/24 Glucose 92 mg/dL (70-99) 10/24/24 15:11 10/24/24 COAG PT 13.8 SECONDS (11.7-14.9) 06/18/14 06:39 06/18/14 Pre-Assessment Diagnosis/Proposed Procedure Planned Operative Procedure(s): (R) Excision, Ganglion Anesthesia History 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 When Was Last Pacemaker Check QUESTION #4 FULL TEXT: You/Your Family Experience fever (hyperthermia) with Anesthesia Any additional information?: No Last Oral Intake Last Oral intake: Last Oral Intake NPO since 23:30 11/01/24 06:35 Meds taken in AM with sips of No 11/01/24 06:35 water? 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 Female Yes 10/23/24 09:10 HX of Motion Sickness No 10/23/24 09:10 HX of N/V After Surgery No 10/23/24 09:10 Non-Smoker Yes 10/23/24 09:10 Duration of Surgery greater No 10/23/24 09:10 than 60 minutes Number of Risk Factors 2 10/23/24 09:10 PONV Score Moderate Risk 10/23/24 09:10 Any additional information?: No Height & Weight Height & Weight: Anesthesia: Height & Weight Height 5 ft 5 in 11/01/24 06:35 Weight: 68 kg 11/01/24 06:35 Body Mass Index (BMI) 24.9 11/01/24 06:35 Respiratory Assessment Respiratory Assessment - professor in family studies: Respiratory Tract Infection Hx - professor in family studies Hx Respiratory Tract Infection Yes: CURRENTLY 10/23/24 09:10 Any additional information?: No STOP Sleep Apnea STOP Sleep Apnea - professor in family studies: STOP Sleep Apnea - professor in family studies Hx Hypertension No 10/23/24 09:10 Hx Sleep Apnea No 10/23/24 09:10 CPAP No 04/17/24 13:11 BIPAP No 04/17/24 13:11 Do you snore loudly (louder No 10/23/24 09:10 than talking or can be heard Do you often feel tired/ No 10/23/24 09:10 fatigued/ sleepy during daytime? Has anyone observed you stop No 10/23/24 09:10 breathing during sleep? STOP Results Negative 10/23/24 09:10 QUESTION #5 FULL TEXT : Do you snore loudly (louder than talking or can be heard through closed doors)? 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 Specify any problems Hx of Preganancy in last 3 N/A 10/23/24 09:10 Months Nurse Filling Out Transfusion NBUCHER 10/23/24 09:10 & Questions: Date: 10/23/24 10/23/24 09:10 Time: 09:11 10/23/24 09:10 Patient unable to answer at this time (ie. confused, unrespo Any additional information?: No /Reproduction History /Reproductive History - professor in family studies: /Reproductive Hx- professor in family studies Hx Now No 10/23/24 09:10 Gestational Age (in weeks): EDC: Hx Hx Para Hx Section SAB No 10/23/24 09:10 Any additional information?: No Active Medications Active Medications: Current Medications Generic Name Dose Route Start Last Admin Trade Name Freq PRN Reason Stop Dose Admin Cefazolin Sodium 2 gm/ N/A 20 mls @ 400 mls/hr 11/01/24 07:30 IV 11/01/24 07:32 INTRAOP ONE Sodium Chloride 1,000 mls @ 15 mls/hr 11/01/24 06:10 11/01/24 06:40 IV 15 mls/hr .Q48H LIAN Administration PFSH Medical History Wears contact lenses Arthritis GERD (gastroesophageal reflux disease) Wears glasses Depression Anxiety Alcohol use Anemia Restless legs Back pain Difficulty swallowing History of hiatal hernia Former smoker Non-smoker History of irregular heartbeat Dysphagia Anxiety and depression Hiatal hernia High cholesterol Bilateral headaches Environmental allergies Home Medications ?Medication ?Instructions ?Recorded ?Last Taken ?Type escitalopram oxalate 5 mg tablet 10 mg PO DAILY 06/10/21 12/26/23 History (Lexapro) lorazepam 0.5 mg tablet 0.5 mg PO DAILY PRN anxiety 05/30/23 Unknown History cetirizine 10 mg tablet (24Hour 10 mg PO DAILY PRN allergy symptoms 12/21/23 12/26/23 History Allergy) Allergy/AdvReac Type Severity Reaction Status Date / Time No Known Allergies Allergy Verified 11/01/24 06:34 Family History Other Breast cancer CVA (cerebral vascular accident) Cancer Heart disease no significant family history Surgical History History of colonoscopy History of Terrence fundoplication History of endometrial ablation History of repair of hiatal hernia History of esophagogastroduodenoscopy (EGD) (~2016) S/P sinus surgery History of tubal ligation Social History household members: spouse and children number of children: 2 current occupational status: employed current occupation: [employer] history of recent travel: No sexually active: Yes Smoking Status: Former smoker alcohol intake: current alcohol intake frequency: holidays/special occasions only details: 3-4 times a day substance use type: does not use what type of physical activity do you participate in: walking frequency: daily seatbelt use: always do you feel safe at home: Yes additional social history: - [employer] Review of Systems (Anesthesia) ROS Narrative System reviewed and no additional complaints, except as documented. Physical Exam Const alert and oriented x3 Orientation / Consciousness: awake HEENT dentition normal Neck full ROM Resp normal respiratory effort Auscultation: clear to auscultation bilaterally Cardio regular rate, regular rhythm and no murmurs Neuro oriented x3 and moves all extremities
[2024-11-01] MEDS: Cefazolin 2 GM in Syringe IV (07:26)
[2024-11-01] MEDS: Bupiv/Epi 0.25% 30 ML Vial (08:22)
--- NOTE | 2024-11-01 08:41 | PCM.POST.ANE ---
Anesthesia: Postop Eval I Current Vital Signs Temperature: 96.7 F Pulse Rate: 88 Blood Pressure: 109/78 Respiratory Rate: 18 Pulse Ox: 99 Oxygen Delivery Method: Room Air Assessment Airway patent: Yes Spontaneous unlabored respirations: Yes Mental status: Awake and Calm nausea: No Vomiting: No Anesthesia Complication: No Fluid Hydration Crystalloid volume administer (ml): 1,000 Total IV fluid infused: 1,000 Progress Note Anesthesia document: Postop Eval 1 completed: Yes
[2024-11-01] MEDS: Ketorolac 15 MG/ML Vial IV (09:12)
--- NOTE | 2024-11-01 13:11 | PCM.OPRPT ---
Operative Report (Standard) Operative Information Date of Procedure: 11/01/24 Pre-Operative Diagnosis: Right elbow ganglion cyst Post-Operative Diagnosis: Right elbow ganglion cyst Surgery/Procedure Performed: Excision of ganglion cyst right elbow cooker chip: Yes Tub Attendant: Virgie Quigley Tasks completed by religious assistant: Opening & closing, Removing tissue and Retracting Type of Anesthesia: General RN Documented Start/Stop Times: Operation Date: 11/01/24 07:30 Case Time Into Pre-Op 11/01/24 06:08 Out of Pre-Op 11/01/24 07:23 Anesthesia Start 11/01/24 07:26 Into Room 11/01/24 07:26 Procedure Start 11/01/24 07:45 Anesthesia End 11/01/24 08:36 Out of Room 11/01/24 08:36 Procedure End 11/01/24 08:36 Into Recovery 11/01/24 08:41 Out of Recovery 11/01/24 09:16 Into Phase II Recovery 11/01/24 09:17 Out of Phase II 11/01/24 09:59 Procedure Start Time: 07:45 Procedure Stop Time: 08:36 Select all DRAINS/GRAFTS/IMPLANTS that apply: None Estimated Blood Loss: 5 cc Specimen collected: No Description of surgery: Patient was identified in the preoperative holding area by name, medical record number, and date of . The operative extremity was marked. All questions were answered to the patient's satisfaction. At time of her procedure, patient was brought to the operative suite and positioned supine on a standard operating table. General anesthesia was induced and LMA was placed. We spun the bed 90 degrees. All bony prominences were well-padded. Well-padded pneumatic recurrent was applied to the right upper arm. We then prepped and draped the right upper extremity over hand table in normal, sterile orthopedic fashion. We then performed a timeout confirming the side, site, and operation to be performed. No concerns were voiced elected to proceed with surgery. 2 g Ancef was administered IV prior to incision by anesthesia staff. I then exsanguinated the right upper extremity with Esmarch bandage. Tourniquet was inflated to 250 mmHg which remained up for approximately 25 minutes. Esmarch was removed. Anterior approach to the radial tunnel was utilized. Longitudinal incision approximately 4 cm in length was made just ulnar to the muscle belly of the brachial radialis and 1 fingerbreadth radial to the distal biceps tendon. Skin was sharply incised with a 15 blade scalpel. Blunt dissection was carried down the level of the fascia. The ulnar border of the brachioradialis was identified and blunt dissection was carried down the level of the fat stripe. Radial nerve was then encountered. The leash of Bart was also identified. The leash was ligated. I was able to palpate and only partially visualize a cystic structure which was causing significant compression on the radial nerve. I then carefully dissected freely the nerve from the surrounding cyst. During dissection the cyst was punctured and typical gelatinous fluid consistent with a ganglion cyst was encountered. I was then able to mobilize the cyst from the nerve. The nerve was eventually retracted gently in the radial direction and allowed for deeper dissection of the cyst down to the level of the volar radial capitellar joint capsule. The takeoff of the cyst was then cauterized and the cyst was excised. No remaining sites of compression were visualized in the proximal portion of the radial tunnel. I elected to not proceed with distal exploration of the radial nerve to limit traction on the nerve. Wound was copiously irrigated with normal saline solution. Tourniquet was deflated. Hemostasis was excellent. Dermis was reapproximated with buried 3-0 Vicryl suture. Skin was finally reapproximated with subcuticular 4-0 Monocryl and Dermabond. Bulky sterile compression dressing was applied. Patient tolerated the procedure well without apparent complication. She was safely explained the operative suite and awakened from anesthesia. She was transferred to her gurney and subsequently to PACU in stable condition. Need for skilled assistant corporate secretary: Virgie Quigley PA-C was critical to the outcome of the case. During the course of the procedure the physician assistant corporate secretary played a vital role. Her intimate knowledge of my steps in the procedure aided in safe and expedient completion of the procedure. The PA played a vital role in positioning particularly in obtaining the appropriate positioning. The PA was also vital in the retraction of soft tissues during the exposure and protecting vital structures. She also played a vital role in closure and dressing application with my direct supervision. Postoperative plan: Weightbearing less than 3 pounds the operative extremity. Ice to the operative site. Sling for comfort. Okay to shower on postoperative day #3 if no drainage. Narcotic pain prescription provided. Tylenol ibuprofen encouraged. Follow-up in 2 weeks for wound check. Surgical Findings: Radiocapitellar ganglion cyst with radial nerve compression Complications Complications: No Admit VTE Documentation VTE Present on Admission: No VTE Mechan Device Prophylaxis: SCD's VTE Pharm Prophylaxis ordered?: Yes
--- NOTE | 2024-11-01 15:07 | POSTOPAN2_ITS ---
Anesthesia Postop Eval I Sum Postop Eval Completion status Anesthesia document: Postop Eval 1 completed: Yes Anesthesia Postop Eval I Summary Anesthesia Postop Eval I Summary: Anesthesia Postop Eval I: Assessment Summary Airway patent Yes 11/01/24 08:42 WORK MEASUREMENT ENGINEER.[email or web address] Spontaneous unlabored Yes 11/01/24 08:42 WORK MEASUREMENT ENGINEER.[email or web address] respirations Mental status Awake,Calm 11/01/24 08:42 WORK MEASUREMENT ENGINEER.JONYLI nausea No 11/01/24 08:42 WORK MEASUREMENT ENGINEER.JONYLI Vomiting No 11/01/24 08:42 WORK MEASUREMENT ENGINEER.GARRY Anesthesia Postop Eval I: Fluid Summary Crystalloid volume administer 1,000 11/01/24 08:42 WORK MEASUREMENT ENGINEER.JCLI (ml) Colloids volume administered ( ml) Blood Product volume administered (ml) Total IV fluid infused 1,000 11/01/24 08:42 WORK MEASUREMENT ENGINEER.GARRY Anesthesia Postop Eval I: Summary Notes Anesthesia Complication No 11/01/24 08:42 WORK MEASUREMENT ENGINEER.GARRY Anesthesia Complication Comment: Post-operative progress note Anesthesia: Postop Eval II Evaluation Mental status: Awake and Calm Pain Level: 0 nausea: No Vomiting: No Complications Anesthesia Complication: No
--- NOTE | 2024-11-01 15:07 | PCM.POSTANE2 ---
Anesthesia Postop Eval I Sum Postop Eval Completion status Anesthesia document: Postop Eval 1 completed: Yes Anesthesia Postop Eval I Summary Anesthesia Postop Eval I Summary: Anesthesia Postop Eval I: Assessment Summary Airway patent Yes 11/01/24 08:42 INCIDENT COORDINATOR.[email or web address] Spontaneous unlabored Yes 11/01/24 08:42 INCIDENT COORDINATOR.GARRY respirations Mental status Awake,Calm 11/01/24 08:42 INCIDENT COORDINATOR.JONYLI nausea No 11/01/24 08:42 INCIDENT COORDINATOR.JONYLI Vomiting No 11/01/24 08:42 INCIDENT COORDINATOR.GARRY Anesthesia Postop Eval I: Fluid Summary Crystalloid volume administer 1,000 11/01/24 08:42 INCIDENT COORDINATOR.JCLI (ml) Colloids volume administered ( ml) Blood Product volume administered (ml) Total IV fluid infused 1,000 11/01/24 08:42 INCIDENT COORDINATOR.GARRY Anesthesia Postop Eval I: Summary Notes Anesthesia Complication No 11/01/24 08:42 INCIDENT COORDINATOR.GARRY Anesthesia Complication Comment: Post-operative progress note Anesthesia: Postop Eval II Evaluation Mental status: Awake and Calm Pain Level: 0 nausea: No Vomiting: No Complications Anesthesia Complication: No
== END 2024-11-01 10:00 | disposition home or self-care (01) ==
LOC: SDC 05:59 → AC 06:01
PROVIDERS: PCP Family Medicine; Referring Provider Student in an Organized Health Care Education/Training Program; Visit Provider Student in an Organized Health Care Education/Training Program
PROC: (CPT 24075; principal; 2024-11-01 07:15)
DX: M67.421 Ganglion, right elbow (principal); Z87.891 Personal history of nicotine dependence; K21.9 Gastro-esophageal reflux disease without esophagitis; E78.00 Pure hypercholesterolemia, unspecified
CPT/HCPCS: 24075; 01710; 36415; 80048; 85025; 93005; J2405